=== PATIENT | female | born 1995 | race Caucasian/White ===

== ENCOUNTER → 2021-02-19 09:32 | Outpatient (BNVA) | payer SELFPAY | PROVIDERS: PCP Nurse Practitioner Family; Visit Provider Internal Medicine Rheumatology | DX: M25.50 Pain in unspecified joint (principal); R76.8 Other specified abnormal immunological findings in serum; Z79.899 Other long term (current) drug therapy; Z11.59 Encounter for screening for other viral diseases; Z11.1 Encounter for screening for respiratory tuberculosis; M54.89 Other dorsalgia; E03.9 Hypothyroidism, unspecified | CPT/HCPCS: 99204 ==

== ENCOUNTER 2021-02-19 11:11 | Outpatient (CLI) | payer SELFPAY ==
--- NOTE | 2021-02-19 11:23 | XR_ITS ---
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 Findings: The lungs are clear and fully expanded. Costophrenic angles are sharp. No infiltrates. Bronchovascula r relief appears normal. Cardiac silhouette is unremarkable. Bony elements are intact. XR/XR chest 2V* [id number] IMPRESSION: Unremarkable chest radiograph.
[2021-02-19 12:55] LABS: 25 Hydroxy Vitamin D 38 ng/mL (30-100); Hepatitis B Core AB, Total Non-Reactive (Nonreactive); Hepatitis C Virus Antibody Non-Reactive (Nonreactive)
[2021-02-19 14:05] LABS: Hepatitis B Surface Antigen Non-Reactive (Nonreactive)
[2021-02-20 11:58] LABS: COMPLEMENT COMPONENT C3C 146 mg/dL (83-193); COMPLEMENT COMPONENT C4C 47 mg/dL (15-57)
[2021-02-20 12:32] LABS: COMPLEMENT, TOTAL (CH50) 55 U/mL (31-60)
[2021-02-20 16:07] LABS: Cyclic Citrullinated Peptide <16 UNITS
[2021-02-21 10:37] LABS: HLA-B27 NEGATIVE (NEGATIVE)
[2021-02-21 12:34] LABS: Quantiferon Mitogen 8.61 IU/mL; Quantiferon Nil 0.08 IU/mL; Quantiferon Plus TB1 <0.00 IU/mL; Quantiferon Plus TB2 <0.00 IU/mL; Quantiferon TB Gold NEGATIVE (NEGATIVE)
[2021-02-21 16:52] LABS: CENTROMERE B ANTIBODY <1.0 NEG AI (<1.0 NEG); JO-1 ANTIBODY <1.0 NEG AI (<1.0 NEG); RNP ANTIBODY <1.0 NEG AI (<1.0 NEG); SCL-70 ANTIBODY <1.0 NEG AI (<1.0 NEG); SJOGREN'S ANTIBODY (SS-A) <1.0 NEG AI (<1.0 NEG); SM ANTIBODY <1.0 NEG AI (<1.0 NEG); SS-B <1.0 NEG AI (<1.0 NEG)
[2021-02-21 17:18] LABS: THYROID PEROXIDASE ANTIBODIES <1 IU/mL (<9)
[2021-02-22 11:58] LABS: ANA SCREEN, IFA POSITIVE (NEGATIVE)
[2021-02-26 17:02] LABS: DNA AB (DS) CRITHIDIA,IFA NEGATIVE (NEGATIVE)
== END 2021-02-19 11:12 | disposition home or self-care (01) ==
LOC: RAD 11:16
PROVIDERS: PCP Nurse Practitioner Family; Visit Provider Internal Medicine Rheumatology
DX: M19.90 Unspecified osteoarthritis, unspecified site (principal); M45.6 Ankylosing spondylitis lumbar region; Z79.899 Other long term (current) drug therapy; R76.8 Other specified abnormal immunological findings in serum; Z11.59 Encounter for screening for other viral diseases; Z11.1 Encounter for screening for respiratory tuberculosis
CPT/HCPCS: 36415; 71046; 72050; 72072; 82306; 86160; 86162; 86200; 86235; 86255; 86376; 86480; 86704; 86803; 86812; 87340